=== PATIENT | female | born 1970 | race American Indian/Alaskan Native ===

== ENCOUNTER 2017-09-16 07:19 | Inpatient (IN) | payer SELFPAY ==
--- NOTE | 2017-09-16 07:59 | Emergency Department Report ---
ED General Adult HPI - General Chief complaint: Dizziness Stated complaint: DIZZY/NAUSEA Time Seen by Provider: 09/16/17 07:37 Source: patient Mode of arrival: Ambulatory Limitations: No Limitations - History of Present Illness Initial comments: Patient presents to emergency Department for chief complaint of confusion and dizziness. Patient states she has a significant history of hypertension and cerebral blood pressure was 250/150 at work after taking her 4 hypertensive medications. Patient describes the dizziness as constant and not improved with sitting still. Patient also complains of a diffuse headache that she describes as pressure-like. Patient denies chest pain, abdominal pain, leg pain. -: Sudden Location: head Radiation: non-radiation Severity scale (0 -10): 7 Quality: other (throbbing) Consistency: constant Improves with: none Worsens with: none Associated Symptoms: headaches, nausea/vomiting Treatments Prior to Arrival: none - Related Data Home Medications Medication Instructions Recorded Confirmed Last Taken Labetalol [Normodyne TAB] 100 mg PO BID 09/16/17 09/16/17 09/16/17 Losartan [Cozaar] 100 mg PO QHS 09/16/17 09/16/17 09/16/17 Potassium Chloride [K-Dur] 10 meq PO QDAY 09/16/17 09/16/17 09/16/17 amLODIPine [Norvasc] 10 mg PO DAILY 09/16/17 09/16/17 09/16/17 cloNIDine [Catapres] 0.2 mg PO QDAY 09/16/17 09/16/17 09/16/17 Allergies Allergy/AdvReac Type Severity Reaction Status Date / Time No Known Allergies Allergy Verified 09/16/17 07:56 ED Review of Systems ROS: Stated complaint: DIZZY/NAUSEA Other details as noted in HPI Comment: All other systems reviewed and negative Constitutional: denies: chills, fever Eyes: denies: eye pain, eye discharge, vision change ENT: denies: ear pain, throat pain Respiratory: denies: cough, shortness of breath, wheezing Cardiovascular: denies: chest pain, palpitations Endocrine: no symptoms reported Gastrointestinal: denies: abdominal pain, nausea, diarrhea Genitourinary: denies: urgency, dysuria, discharge Musculoskeletal: denies: back pain, joint swelling, arthralgia Skin: denies: rash, lesions Neurological: vertigo. denies: headache, weakness, paresthesias Psychiatric: denies: anxiety, depression Hematological/Lymphatic: denies: easy bleeding, easy bruising ED Past Medical Hx - Past Medical History Previous Medical History?: Yes Hx Hypertension: Yes - Surgical History Past Surgical History?: Yes Additional Surgical History: Partial hysterectomy - Social History Smoking Status: Current Every Day Smoker Substance Use Type: Alcohol, Marijuana, Prescribed - Medications Home Medications: Home Medications Medication Instructions Recorded Confirmed Last Taken Type Labetalol [Normodyne TAB] 100 mg PO BID 09/16/17 09/16/17 09/16/17 History Losartan [Cozaar] 100 mg PO QHS 09/16/17 09/16/17 09/16/17 History Potassium Chloride [K-Dur] 10 meq PO QDAY 09/16/17 09/16/17 09/16/17 History amLODIPine [Norvasc] 10 mg PO DAILY 09/16/17 09/16/17 09/16/17 History cloNIDine [Catapres] 0.2 mg PO QDAY 09/16/17 09/16/17 09/16/17 History ED Physical Exam - General Limitations: No Limitations General appearance: alert, in no apparent distress - Head Head exam: Present: atraumatic, normocephalic - Eye Eye exam: Present: normal appearance, PERRL, EOMI - ENT ENT exam: Present: mucous membranes moist - Neck Neck exam: Present: normal inspection - Respiratory Respiratory exam: Present: normal lung sounds bilaterally. Absent: respiratory distress - Cardiovascular Cardiovascular Exam: Present: regular rate, normal rhythm. Absent: systolic murmur, diastolic murmur, rubs, gallop - GI/Abdominal GI/Abdominal exam: Present: soft, normal bowel sounds. Absent: distended, tenderness - Extremities Exam Extremities exam: Present: normal inspection - Back Exam Back exam: Present: normal inspection - Neurological Exam Neurological exam: Present: alert, oriented X3, CN II-XII intact. Absent: motor sensory deficit - Psychiatric Psychiatric exam: Present: normal affect, normal mood - Skin Skin exam: Present: warm, dry, intact, normal color. Absent: rash ED Course Vital Signs 09/16/17 09/16/17 07:26 07:38 Temperature 97.6 F Pulse Rate 79 68 Respiratory 18 16 Rate Blood Pressure 253/150 Blood Pressure 234/136 [Left] O2 Sat by Pulse 100 100 Oximetry ED Medical Decision Making - Lab Data Result diagrams: 09/16/17 07:39 09/16/17 07:41 - EKG Data EKG shows normal: sinus rhythm (65) Rate: normal - EKG Data Interpretation: LV[facility] - Medical Decision Making Patient started according drip Discussed results with patient and her . Critical Care Time: Yes Critical care time in (mins) excluding proc time.: 45 Critical care attestation.: If time is entered above; I have spent that time in minutes in the direct care of this critically ill patient, excluding procedure time. ED Disposition Clinical Impression: Hypertensive encephalopathy, Hypertensive urgency, Hypokalemia Disposition: DC-09 OP ADMIT IP TO THIS HOSP Is pt being admited?: Yes Does the pt Need Aspirin: No Condition: Fair Referrals: PRIMARY CARE, [Primary Care Provider] - 3-5 Days Time of Disposition: 08:55
[2017-09-16] MEDS ORDERED: MORPHINE IV ONE (08:00)
[2017-09-16] MEDS ORDERED: ZOFRAN IV ONE (08:00)
[2017-09-16 08:12] LABS: Basophils % (Auto) 0.6 % (0.0-1.8); Eosinophils # (Auto) 0.1 K/mm3 (0.0-0.4); Eosinophils % (Auto) 1.8 % (0.0-4.3); Hemoglobin 12.8 gm/dl (10.1-14.3); Lymphocytes # (Auto) 2.6 K/mm3 (1.2-5.4); Lymphocytes % (Auto) 48.3 % (13.4-35.0); Mean Corpuscular HGB Conc 34 % (30-34); Mean Corpuscular Hemoglobin 31 pg (28-32); Mean Corpuscular Volume 91 fl (79-97); Monocytes # (Auto) 0.3 K/mm3 (0.0-0.8); Platelet Count 200 K/mm3 (140-440); Red Blood Count 4.19 M/mm3 (3.65-5.03); Red Cell Distribution Width 15.7 % (13.2-15.2)
--- NOTE | 2017-09-16 08:23 | Cat Scan Report ---
CRANIAL CT SCAN: Headache, slow speech. Serial contiguous axial images were obtained through the cranium. Intravenous contrast material was not administered. The ventricles are normal in size and appearance. There is no mass effect or midline shift. No areas of abnormally increased or decreased attenuation are seen. No mass lesion is seen. The mastoid air cells and visualized portions of the sinuses are normal except for minimal mucoperiosteal areas of thickening in the left sphenoid sinus. IMPRESSION: Cranial CT scan within normal limits.
[2017-09-16 08:28] LABS: BUN/Creatinine Ratio 16; Blood Urea Nitrogen 11 mg/dL (7-17); Calcium 9.7 mg/dL (8.4-10.2); Hemolysis Index 10
[2017-09-16 08:31] LABS: INR 0.92 (0.87-1.13); Partial Thromboplastin Time 26.4 Sec. (24.2-36.6)
[2017-09-16 08:34] LABS: Alanine Aminotransferase 8 units/L (7-56); Albumin 4.7 g/dL (3.9-5)
[2017-09-16 08:37] LABS: Bilirubin,Direct < 0.2 mg/dL (0-0.2)
[2017-09-16] MEDS: CARDENE 50 MG in NACL 0.9% 250ML 230 ML IV SCH ×2 (08:42→19:52)
--- NOTE | 2017-09-16 08:46 | XRay Report ---
PORTABLE CHEST: Confusion. An AP portable view of the chest demonstrates a normal cardiac contour considering the limits of this technique. The lungs are clear with no evidence of infiltrate, fluid or failure. IMPRESSION: Normal portable chest.
--- NOTE | 2017-09-16 10:24 | Consultation ---
<TONG WOODARD - Last Filed: 09/16/17 10:37> History of Present Illness Consult date: 09/16/17 Requesting physician: LUIS CABRERA Consult reason: atrial fibrillation History of present illness: The pt is a 46 Yo female with a past medical history significant for HTN and marijuana use. She is previously unknown to our practice. She is currently followed by [facility]. She presented with complaints of confusion, dizziness, diaphoresis, headache and nausea since this morning. Pt's spouse at bedside states that pt has a history of HTN for which she takes 4 anti-hypertensive medications and that her BP has been difficult to control for 20+ years. The pt awoke this AM in her normal state of health and took her medications and went to work. She was at work when her symptoms suddenly developed and EMS was called. Arrival BP was noted to be 253/150 and she was initiated on cardene gtt. Pt reports compliance with her home medication regimen. Following arrival, pt was noted to develop AFib with RVR and thus cardiology has been consulted. On evaluation, pt c/o new onset palpitations. Pt denies any prior cardiac issues , including CAD, AMI, HF or cardiac arrhythmias. Past History Past Medical History: hypertension Past Surgical History: hysterectomy (partial) Social history: , lives with family, smoking (marijuana). denies: alcohol abuse, prescription drug abuse, IV drug use Family history: diabetes, hypertension, other (mother with heart failure ) Medications and Allergies Allergies Allergy/AdvReac Type Severity Reaction Status Date / Time No Known Allergies Allergy Verified 09/16/17 07:56 Home Medications Medication Instructions Recorded Confirmed Last Taken Type Labetalol [Normodyne TAB] 100 mg PO BID 09/16/17 09/16/17 09/16/17 History Losartan [Cozaar] 100 mg PO QHS 09/16/17 09/16/17 09/16/17 History Potassium Chloride [K-Dur] 10 meq PO QDAY 09/16/17 09/16/17 09/16/17 History amLODIPine [Norvasc] 10 mg PO DAILY 09/16/17 09/16/17 09/16/17 History cloNIDine [Catapres] 0.2 mg PO QDAY 09/16/17 09/16/17 09/16/17 History Active Meds: Active Medications Nicardipine HCl 50 mg/ Sodium (Chloride) 250 mls @ 25 mls/hr IV TITR WENCESLAO; Protocol Last Admin: 09/16/17 08:42 Dose: 5 mg/hr, 25 mls/hr Amiodarone HCl 150 mg/ (Dextrose) 100 mls @ 600 mls/hr IV ONCE ONE; Protocol Stop: 09/16/17 10:23 Amiodarone HCl 900 mg/ (Dextrose) 500 mls @ 33.33 mls/hr IV DIRECT WENCESLAO; Protocol Magnesium Sulfate (Magnesium Sulfate 2gm/50ml) 2 gm in 50 mls @ 25 mls/hr IV ONCE ONE Stop: 09/16/17 12:13 Potassium Chloride (Kcl 10meq/100ml) 10 meq in 100 mls @ 100 mls/hr IV Q1H WENCESLAO Stop: 09/16/17 14:59 Review of Systems Constitutional: sweats, no weight loss, no weight gain, no fever, no chills Ears, nose, mouth and throat: no ear pain, no nose pain, no sinus pressure, no sinus pain Cardiovascular: palpitations, rapid/irregular heart beat, lightheadedness, high blood pressure, no chest pain, no orthopnea, no edema, no syncope, no shortness of breath, no dyspnea on exertion, no leg edema Respiratory: no cough, no shortness of breath, no dyspnea on exertion, no congestion, no wheezing, no pain on inspiration Gastrointestinal: nausea, no abdominal pain, no vomiting, no diarrhea, no constipation, no change in bowel habits Genitourinary Female: no pelvic pain, no flank pain Musculoskeletal: no neck stiffness, no neck pain, no shooting arm pain, no arm numbness/tingling, no low back pain, no shooting leg pain, no leg numbness/ tingling, no redness of joints, no hot joints, no morning stiffness, no muscle weakness Integumentary: no rash, no pruritis, no redness, no sores, no wounds Neurological: headaches, change in mentation, confusion, no head injury, no paralysis, no weakness, no parathesias, no numbness, no tingling, no seizures, no syncope Psychiatric: no anxiety Endocrine: no cold intolerance, no heat intolerance Hematologic/Lymphatic: no easy bruising, no easy bleeding Allergic/Immunologic: no urticaria, no wheezing Physical Examination Vital Signs Temp Pulse Resp BP Pulse Ox 97.6 F 79 18 253/150 100 09/16/17 07:26 09/16/17 07:26 09/16/17 07:26 09/16/17 07:26 09/16/17 07:26 General appearance: other (lethargic, diaphoretic ) HEENT: Positive: PERRL Neck: Positive: neck supple, trachea midline Cardiac: Positive: irregularly irregular, S1/S2, Systolic Murmur, Tachycardia Lungs: Positive: Decreased Breath Sounds Neuro: Positive: Grossly Intact Abdomen: Positive: Soft. Negative: Tender Skin: Positive: Clear. Negative: Rash, Wound Musculoskeletal: No Fluid Collection, No Pain, Normal Range of Motion Extremities: Absent: edema Results 09/16/17 07:39 09/16/17 07:41 Cardiac Enzymes 09/16/17 Range/Units 07:53 AST 15 (5-40) units/L Coagulation 09/16/17 Range/Units 07:41 PT 12.8 (12.2-14.9) Sec. INR 0.92 (0.87-1.13) APTT 26.4 (24.2-36.6) Sec. CBC 09/16/17 Range/Units 07:39 WBC 5.4 (4.5-11.0) K/mm3 RBC 4.19 (3.65-5.03) M/mm3 Hgb 12.8 (10.1-14.3) gm/dl Hct 38.0 (30.3-42.9) % Plt Count 200 (140-440) K/mm3 Lymph # 2.6 (1.2-5.4) K/mm3 [place] # 0.3 (0.0-0.8) K/mm3 Eos # 0.1 (0.0-0.4) K/mm3 Baso # 0.0 (0.0-0.1) K/mm3 Comprehensive Metabolic Panel 09/16/17 09/16/17 Range/Units 07:41 07:53 Sodium 141 (137-145) mmol/L Potassium 2.9 L* (3.6-5.0) mmol/L Chloride 101.4 (98-107) mmol/L Carbon Dioxide 21 L (22-30) mmol/L BUN 11 (7-17) mg/dL Creatinine 0.7 (0.7-1.2) mg/dL Glucose 133 H (65-100) mg/dL Calcium 9.7 (8.4-10.2) mg/dL Direct Bilirubin < 0.2 (0-0.2) mg/dL AST 15 (5-40) units/L ALT 8 (7-56) units/L Alkaline Phosphatase 55 (35-129) units/L Total Protein 7.4 (6.3-8.2) g/dL Albumin 4.7 (3.9-5) g/dL - Imaging and Cardiology Echo: pending EKG: report reviewed, image reviewed EKG interpretations - Telemetry EKG Rhythm: Atrial Fibrillation - EKG Supraventricular dysrhythmia: atrial fibrillation Repolarization changes or abnormalities: ST or T wave suggestive of ischemia Assessment and Plan Initiate IV amiodarone. Cont cardene gtt for BP optimization. Obtain echo. Obtain thyroid profile. Replete K+ and Mg and repeat BMP and Mg in AM. Pt with current CHADS score of 2 and thus systemic anticoagulation may be indicated if atrial fibrillation persists. Will initiate full dosage lovenox at this time and consider conversion to OAC prior to hospital discharge. The patient has been seen in conjunction with Dr. Ricks who agrees with the assessment and plan of care. - Patient Problems (1) Hypertensive emergency Current Visit: Yes Status: Acute (2) Atrial fibrillation with RVR Current Visit: Yes Status: Acute (3) Hypertensive encephalopathy Current Visit: Yes Status: Acute (4) Hypomagnesemia Current Visit: Yes Status: Acute (5) Hypokalemia Current Visit: Yes Status: Acute <KURT BROWN - Last Filed: 09/16/17 11:05> History of Present Illness History of present illness: NIHSS is 0 Medications and Allergies Active Meds: Active Medications Enoxaparin Sodium (Lovenox) 80 mg SUB-Q BID WENCESLAO Nicardipine HCl 50 mg/ Sodium (Chloride) 250 mls @ 25 mls/hr IV TITR WENCESLAO; Protocol Last Admin: 09/16/17 08:42 Dose: 5 mg/hr, 25 mls/hr Amiodarone HCl 900 mg/ (Dextrose) 500 mls @ 33.33 mls/hr IV DIRECT WENCESLAO; Protocol Magnesium Sulfate (Magnesium Sulfate 2gm/50ml) 2 gm in 50 mls @ 25 mls/hr IV ONCE ONE Stop: 09/16/17 12:29 Last Admin: 09/16/17 10:46 Dose: 25 mls/hr Potassium Chloride (Kcl 10meq/100ml) 10 meq in 100 mls @ 100 mls/hr IV Q1H WENCESLAO Stop: 09/16/17 14:59 Last Admin: 09/16/17 10:46 Dose: 100 mls/hr Physical Examination Vital Signs Temp Pulse Resp BP Pulse Ox 97.6 F 79 18 253/150 100 09/16/17 07:26 09/16/17 07:26 09/16/17 07:26 09/16/17 07:26 09/16/17 07:26 Results 09/16/17 07:39 09/16/17 07:41 Cardiac Enzymes 09/16/17 Range/Units 07:53 AST 15 (5-40) units/L Coagulation 09/16/17 Range/Units 07:41 PT 12.8 (12.2-14.9) Sec. INR 0.92 (0.87-1.13) APTT 26.4 (24.2-36.6) Sec. CBC 09/16/17 Range/Units 07:39 WBC 5.4 (4.5-11.0) K/mm3 RBC 4.19 (3.65-5.03) M/mm3 Hgb 12.8 (10.1-14.3) gm/dl Hct 38.0 (30.3-42.9) % Plt Count 200 (140-440) K/mm3 Lymph # 2.6 (1.2-5.4) K/mm3 Jackson # 0.3 (0.0-0.8) K/mm3 Eos # 0.1 (0.0-0.4) K/mm3 Baso # 0.0 (0.0-0.1) K/mm3 Comprehensive Metabolic Panel 09/16/17 09/16/17 Range/Units 07:41 07:53 Sodium 141 (137-145) mmol/L Potassium 2.9 L* (3.6-5.0) mmol/L Chloride 101.4 (98-107) mmol/L Carbon Dioxide 21 L (22-30) mmol/L BUN 11 (7-17) mg/dL Creatinine 0.7 (0.7-1.2) mg/dL Glucose 133 H (65-100) mg/dL Calcium 9.7 (8.4-10.2) mg/dL Direct Bilirubin < 0.2 (0-0.2) mg/dL AST 15 (5-40) units/L ALT 8 (7-56) units/L Alkaline Phosphatase 55 (35-129) units/L Total Protein 7.4 (6.3-8.2) g/dL Albumin 4.7 (3.9-5) g/dL
[2017-09-16] MEDS ORDERED: CORDARONE 150 MG in D5W 97 ML IV ONE (10:30)
[2017-09-16] MEDS ORDERED: MAGNESIUM SULFATE 2GM/50ML 2 GM/50 ML BAG IV ONE (10:30)
[2017-09-16] MEDS: KCL 10MEQ/100ML 10 MEQ/100 ML BAG IV SCH ×4 (10:46→16:46)
[2017-09-16] MEDS ORDERED: LOVENOX SUB-Q ONE (11:42)
[2017-09-16] MEDS: LOVENOX SUB-Q SCH (12:10)
[2017-09-16] MEDS: CORDARONE 900 MG in D5W 482 ML IV SCH (12:10)
--- NOTE | 2017-09-16 13:20 | History and Physical Report ---
History of Present Illness Date of examination: 09/16/17 Date of admission: 09/16/17 09:06 Chief complaint: cp History of present illness: The pt is a 46 Yo female with a past medical history significant for HTN and marijuana use, currently followed by [facility] who presented through the ED with complaints of confusion, dizziness, diaphoresis, headache and nausea that began on the morning of 09/16/17. Pt reportedly takes clonidine and losartan for her BP but it has been difficult to control for 20+ years. The pt awoke this AM in her normal state of health and took her medications and went to work. She was at work when her symptoms suddenly developed and EMS was called. Arrival BP was noted to be 253/150 and she was initiated on cardene gtt. Pt reports compliance with her home medication regimen. Following arrival, pt was noted to develop AFib with RVR. Pt denies any prior cardiac issues, including CAD, AMI, HF or cardiac arrhythmias. Past History Past Medical History: hypertension Past Surgical History: hysterectomy (partial) Social history: , lives with family, smoking (marijuana). denies: alcohol abuse, prescription drug abuse, IV drug use Family history: diabetes, hypertension, other (mother with heart failure ) Medications and Allergies Allergies Allergy/AdvReac Type Severity Reaction Status Date / Time No Known Allergies Allergy Verified 09/16/17 07:56 Home Medications Medication Instructions Recorded Confirmed Last Taken Type Labetalol [Normodyne TAB] 100 mg PO BID 09/16/17 09/16/17 09/16/17 History Losartan [Cozaar] 100 mg PO QHS 09/16/17 09/16/17 09/16/17 History Potassium Chloride [K-Dur] 10 meq PO QDAY 09/16/17 09/16/17 09/16/17 History amLODIPine [Norvasc] 10 mg PO DAILY 09/16/17 09/16/17 09/16/17 History cloNIDine [Catapres] 0.2 mg PO QDAY 09/16/17 09/16/17 09/16/17 History Active Meds: Active Medications Enoxaparin Sodium (Lovenox) 80 mg SUB-Q BID WENCESLAO Last Admin: 09/16/17 12:10 Dose: 80 mg Nicardipine HCl 50 mg/ Sodium (Chloride) 250 mls @ 25 mls/hr IV TITR WENCESLAO; Protocol Last Admin: 09/16/17 08:42 Dose: 5 mg/hr, 25 mls/hr Amiodarone HCl 900 mg/ (Dextrose) 500 mls @ 33.33 mls/hr IV DIRECT WENCESLAO; Protocol Last Admin: 09/16/17 12:10 Dose: 1 mg/min, 33.33 mls/hr Potassium Chloride (Kcl 10meq/100ml) 10 meq in 100 mls @ 100 mls/hr IV Q1H WENCESLAO Stop: 09/16/17 14:59 Last Admin: 09/16/17 12:10 Dose: 100 mls/hr Exam - Constitutional Vitals: Temp Pulse Resp BP Pulse Ox 97.6 F 95 H 17 164/101 78 L 09/16/17 07:26 09/16/17 12:31 09/16/17 12:31 09/16/17 12:31 09/16/17 12:31 General appearance: Present: no acute distress, well-nourished - EENT Eyes: Present: PERRL ENT: hearing intact, clear oral mucosa - Neck Neck: Present: supple, normal ROM - Respiratory Respiratory effort: normal Respiratory: bilateral: CTA - Cardiovascular Heart Sounds: Present: S1 & S2. Absent: rub, click - Extremities Extremities: pulses symmetrical, No edema Peripheral Pulses: within normal limits - Abdominal General gastrointestinal: Present: soft, non-tender, non-distended, normal bowel sounds Female genitourinary: Present: normal - Integumentary Integumentary: Present: clear, warm, dry - Musculoskeletal Musculoskeletal: gait normal, strength equal bilaterally - Psychiatric Psychiatric: appropriate mood/affect, intact judgment & insight - Neurologic Neurologic: CNII-XII intact, moves all extremities Results - Labs CBC & Chem 7: 09/16/17 07:39 09/16/17 07:41 Labs: Laboratory Last Values WBC 5.4 K/mm3 (4.5-11.0) 09/16/17 07:39 RBC 4.19 M/mm3 (3.65-5.03) 09/16/17 07:39 Hgb 12.8 gm/dl (10.1-14.3) 09/16/17 07:39 Hct 38.0 % (30.3-42.9) 09/16/17 07:39 MCV 91 fl (79-97) 09/16/17 07:39 MCH 31 pg (28-32) 09/16/17 07:39 MCHC 34 % (30-34) 09/16/17 07:39 RDW 15.7 % (13.2-15.2) H 09/16/17 07:39 Plt Count 200 K/mm3 (140-440) 09/16/17 07:39 Lymph % (Auto) 48.3 % (13.4-35.0) H 09/16/17 07:39 [place] % (Auto) 6.0 % (0.0-7.3) 09/16/17 07:39 Eos % (Auto) 1.8 % (0.0-4.3) 09/16/17 07:39 Baso % (Auto) 0.6 % (0.0-1.8) 09/16/17 07:39 Lymph # 2.6 K/mm3 (1.2-5.4) 09/16/17 07:39 [place] # 0.3 K/mm3 (0.0-0.8) 09/16/17 07:39 Eos # 0.1 K/mm3 (0.0-0.4) 09/16/17 07:39 Baso # 0.0 K/mm3 (0.0-0.1) 09/16/17 07:39 Seg Neutrophils % 43.3 % (40.0-70.0) 09/16/17 07:39 Seg Neutrophils # 2.3 K/mm3 (1.8-7.7) 09/16/17 07:39 PT 12.8 Sec. (12.2-14.9) 09/16/17 07:41 INR 0.92 (0.87-1.13) 09/16/17 07:41 APTT 26.4 Sec. (24.2-36.6) 09/16/17 07:41 Thrombin Time 14.8 Sec. (15.1-19.6) L 09/16/17 07:41 Sodium 141 mmol/L (137-145) 09/16/17 07:41 Potassium 2.9 mmol/L (3.6-5.0) L* 09/16/17 07:41 Chloride 101.4 mmol/L (98-107) 09/16/17 07:41 Carbon Dioxide 21 mmol/L (22-30) L 09/16/17 07:41 Anion Gap 22 mmol/L 09/16/17 07:41 BUN 11 mg/dL (7-17) 09/16/17 07:41 Creatinine 0.7 mg/dL (0.7-1.2) 09/16/17 07:41 Estimated GFR > 60 ml/min 09/16/17 07:41 BUN/Creatinine Ratio 16 % 09/16/17 07:41 Glucose 133 mg/dL (65-100) H 09/16/17 07:41 Calcium 9.7 mg/dL (8.4-10.2) 09/16/17 07:41 Magnesium 1.50 mg/dL (1.7-2.3) L 09/16/17 07:53 Total Bilirubin 0.50 mg/dL (0.1-1.2) 09/16/17 07:53 Direct Bilirubin < 0.2 mg/dL (0-0.2) 09/16/17 07:53 AST 15 units/L (5-40) 09/16/17 07:53 ALT 8 units/L (7-56) 09/16/17 07:53 Alkaline Phosphatase 55 units/L (35-129) 09/16/17 07:53 Troponin T < 0.010 ng/mL (0.00-0.029) 09/16/17 07:53 NT-Pro-B Natriuret Pep 671.3 pg/mL (0-450) H 09/16/17 07:53 Total Protein 7.4 g/dL (6.3-8.2) 09/16/17 07:53 Albumin 4.7 g/dL (3.9-5) 09/16/17 07:53 Albumin/Globulin Ratio 1.7 % 09/16/17 07:53 TSH 0.281 mlU/mL (0.270-4.200) 09/16/17 11:08 Free T4 1.23 ng/dL (0.76-1.46) 09/16/17 11:08 Assessment and Plan Assessment and plan: HTN emergency. Cont Cardene drip and restart Home meds Afib with RVR. CHADS score 2. Anticoagulation per Cardiology who has been consulted. Check ECHO Hypomagnesemia. Replete Mg Hypokalemia. Replete K
[2017-09-16] MEDS ORDERED: ZOFRAN ONE (14:08)
[2017-09-16] MEDS: ZOFRAN IV PRN ×2 (14:09→19:52)
--- NOTE | 2017-09-16 17:59 | Consultation ---
History of Present Illness Consult date: 09/16/17 Requesting physician: LUIS CABRERA History of present illness: The pt is a 46 Yo female with a past medical history significant for HTN and marijuana use, currently followed by [place] who presented through the ED with complaints of confusion, dizziness, diaphoresis, headache and nausea that began on the morning of 09/16/17. Pt reportedly takes clonidine and losartan for her BP but it has been difficult to control for 20+ years. The pt awoke this AM in her normal state of health and took her medications and went to work. She was at work when her symptoms suddenly developed and EMS was called. Arrival BP was noted to be 253/150 and she was initiated on cardene gtt. Pt reports compliance with her home medication regimen. Following arrival, pt was noted to develop AFib with RVR. Pt denies any prior cardiac issues, including CAD, AMI, HF or cardiac arrhythmias. Patient seen and examined. Vitals, labs, medications, chart and imaging reviewed She feels better. Denies any nausea, headaches are much better Currently in sinus rhythm on amiodarone infusion and nicardipine infusion Review of systems Comment: All other systems reviewed and negative Constitutional: denies: chills, fever Eyes: denies: eye pain, eye discharge, vision change ENT: denies: ear pain, throat pain Respiratory: denies: cough, shortness of breath, wheezing Cardiovascular: denies: chest pain, palpitations Endocrine: no symptoms reported Gastrointestinal: denies: abdominal pain, nausea, diarrhea Genitourinary: denies: urgency, dysuria, discharge Musculoskeletal: denies: back pain, joint swelling, arthralgia Skin: denies: rash, lesions Neurological: vertigo. denies: headache, weakness, paresthesias Psychiatric: denies: anxiety, depression Hematological/Lymphatic: denies: easy bleeding, easy bruising Past History Past Medical History: hypertension Past Surgical History: hysterectomy (partial) Social history: , lives with family, smoking (marijuana). denies: alcohol abuse, prescription drug abuse, IV drug use Family history: diabetes, hypertension, other (mother with heart failure ) Medications and Allergies Allergies Allergy/AdvReac Type Severity Reaction Status Date / Time No Known Allergies Allergy Verified 09/16/17 07:56 Home Medications Medication Instructions Recorded Confirmed Last Taken Type Labetalol [Normodyne TAB] 100 mg PO BID 09/16/17 09/16/17 09/16/17 History Losartan [Cozaar] 100 mg PO QHS 09/16/17 09/16/17 09/16/17 History Potassium Chloride [K-Dur] 10 meq PO QDAY 09/16/17 09/16/17 09/16/17 History amLODIPine [Norvasc] 10 mg PO DAILY 09/16/17 09/16/17 09/16/17 History cloNIDine [Catapres] 0.2 mg PO QDAY 09/16/17 09/16/17 09/16/17 History Active Meds: Active Medications Amlodipine Besylate (Norvasc) 10 mg PO DAILY [facility] Clonidine HCl (Catapres) 0.2 mg PO QDAY [facility] Enoxaparin Sodium (Lovenox) 80 mg SUB-Q BID [facility] Last Admin: 09/16/17 12:10 Dose: 80 mg Nicardipine HCl 50 mg/ Sodium (Chloride) 250 mls @ 25 mls/hr IV TITR [facility]; Protocol Last Admin: 09/16/17 08:42 Dose: 5 mg/hr, 25 mls/hr Amiodarone HCl 900 mg/ (Dextrose) 500 mls @ 33.33 mls/hr IV DIRECT [facility]; Protocol Last Admin: 09/16/17 12:10 Dose: 1 mg/min, 33.33 mls/hr Labetalol HCl (Normodyne) 100 mg PO BID [facility] Losartan Potassium (Cozaar) 100 mg PO QHS [facility] Ondansetron HCl (Zofran) 4 mg IV Q6H PRN PRN Reason: Nausea And Vomiting Potassium Chloride (K-Dur) 10 meq PO QDAY [facility] Physical Examination Vital signs: Vital Signs Temp Pulse Resp BP Pulse Ox 97.6 F 79 18 253/150 100 09/16/17 07:26 09/16/17 07:26 09/16/17 07:26 09/16/17 07:26 09/16/17 07:26 Reviewed General appearance: no acute distress, lethargic, other (Atraumatic, normocephalic) Eyes: non-icteric ENT: oropharynx moist, other Neck: supple, no lymphadenopathy, no JVD Effort: normal Ascultation: Bilateral: clear Cardiovascular: regular rate and rhythm, other (S1,S2, no murmurs, gallops or rubs) Gastrointestinal: normoactive bowel sounds, soft, non-tender, non-distended, other (No hepatosplenomegaly) Integumentary: normal Extremities: no cyanosis, no edema, pulses normal, no ischemia or petechiae Musculoskeletal: no deformities normal mental status, non-focal exam, pupils equal and round, CN II-XII normal, motor strength normal and mood appropriate, anxious Results - Laboratory Findings CBC and BMP: 09/16/17 07:39 09/17/17 03:49 PT/INR, D-dimer PT 12.8 Sec. (12.2-14.9) 09/16/17 07:41 INR 0.92 (0.87-1.13) 09/16/17 07:41 Abnormal lab findings: Abnormal Labs 09/16/17 09/16/17 09/16/17 07:39 07:41 07:41 RDW 15.7 H Lymph % (Auto) 48.3 H Thrombin Time 14.8 L Potassium 2.9 L* Carbon Dioxide 21 L Glucose 133 H Magnesium NT-Pro-B Natriuret Pep 09/16/17 09/16/17 07:53 07:53 RDW Lymph % (Auto) Thrombin Time Potassium Carbon Dioxide Glucose Magnesium 1.50 L NT-Pro-B Natriuret Pep 671.3 H - Diagnostic Findings Chest x-ray: image reviewed (No acute cardiopulmonary disease) Assessment and Plan HTN emergency, encephalopathy Afib with RVR. CHADS score 2 Elevated BNP Hypomagnesemia. Hypokalemia..chronic Obesity Tobacco abuse disorder/Nicotine dependence Admit ICU Titrate off cardene infusion Home medications to be resumed...currently on amlodipine, losartan, clonidine and metoprolol VTE prophylaxis Amiodarone infusion Get Transthoracic echocardiogram Replete potassium..keep K at 4 and Mg at 2 Smoking cessation counselling done at the bedside Weight loss and lifestyle modifications discussed Nicotine withdrawal precautions Anti-emetics Discussed care plan with patient and her daughter who was at the bedside CC time 40 minutes
[2017-09-17] MEDS: COZAAR PO SCH ×3 (00:42→21:58)
[2017-09-17] MEDS: NORMODYNE PO SCH ×4 (00:43→21:58)
[2017-09-17] MEDS: LOVENOX SUB-Q SCH ×2 (00:44→09:14)
[2017-09-17 05:01] LABS: BUN/Creatinine Ratio 14; Blood Urea Nitrogen 7 mg/dL (7-17); Calcium 9.6 mg/dL (8.4-10.2); Hemolysis Index 3
[2017-09-17] MEDS: ZOFRAN IV PRN (07:48)
[2017-09-17] MEDS: CATAPRES PO SCH (09:13)
[2017-09-17] MEDS: K-DUR PO SCH (09:14)
--- NOTE | 2017-09-17 09:29 | Progress Note ---
Hospitalist Physical - Constitutional Vitals: Temp Pulse Resp BP Pulse Ox 98.4 F 70 14 197/117 100 09/17/17 08:00 09/17/17 09:14 09/17/17 09:10 09/17/17 09:14 09/17/17 09:10 General appearance: Present: no acute distress, well-nourished Results - Labs CBC & Chem 7: 09/16/17 07:39 09/17/17 03:49 Labs: Laboratory Last Values WBC 5.4 K/mm3 (4.5-11.0) 09/16/17 07:39 RBC 4.19 M/mm3 (3.65-5.03) 09/16/17 07:39 Hgb 12.8 gm/dl (10.1-14.3) 09/16/17 07:39 Hct 38.0 % (30.3-42.9) 09/16/17 07:39 MCV 91 fl (79-97) 09/16/17 07:39 MCH 31 pg (28-32) 09/16/17 07:39 MCHC 34 % (30-34) 09/16/17 07:39 RDW 15.7 % (13.2-15.2) H 09/16/17 07:39 Plt Count 200 K/mm3 (140-440) 09/16/17 07:39 Lymph % (Auto) 48.3 % (13.4-35.0) H 09/16/17 07:39 [place] % (Auto) 6.0 % (0.0-7.3) 09/16/17 07:39 Eos % (Auto) 1.8 % (0.0-4.3) 09/16/17 07:39 Baso % (Auto) 0.6 % (0.0-1.8) 09/16/17 07:39 Lymph # 2.6 K/mm3 (1.2-5.4) 09/16/17 07:39 [place] # 0.3 K/mm3 (0.0-0.8) 09/16/17 07:39 Eos # 0.1 K/mm3 (0.0-0.4) 09/16/17 07:39 Baso # 0.0 K/mm3 (0.0-0.1) 09/16/17 07:39 Seg Neutrophils % 43.3 % (40.0-70.0) 09/16/17 07:39 Seg Neutrophils # 2.3 K/mm3 (1.8-7.7) 09/16/17 07:39 PT 12.8 Sec. (12.2-14.9) 09/16/17 07:41 INR 0.92 (0.87-1.13) 09/16/17 07:41 APTT 26.4 Sec. (24.2-36.6) 09/16/17 07:41 Thrombin Time 14.8 Sec. (15.1-19.6) L 09/16/17 07:41 Sodium 136 mmol/L (137-145) L 09/17/17 03:49 Potassium 3.4 mmol/L (3.6-5.0) L 09/17/17 03:49 Chloride 98.3 mmol/L (98-107) 09/17/17 03:49 Carbon Dioxide 21 mmol/L (22-30) L 09/17/17 03:49 Anion Gap 20 mmol/L 09/17/17 03:49 BUN 7 mg/dL (7-17) 09/17/17 03:49 Creatinine 0.5 mg/dL (0.7-1.2) L 09/17/17 03:49 Estimated GFR > 60 ml/min 09/17/17 03:49 BUN/Creatinine Ratio 14 % 09/17/17 03:49 Glucose 103 mg/dL (65-100) H 09/17/17 03:49 Calcium 9.6 mg/dL (8.4-10.2) 09/17/17 03:49 Magnesium 2.00 mg/dL (1.7-2.3) 09/17/17 03:49 Total Bilirubin 0.50 mg/dL (0.1-1.2) 09/16/17 07:53 Direct Bilirubin < 0.2 mg/dL (0-0.2) 09/16/17 07:53 AST 15 units/L (5-40) 09/16/17 07:53 ALT 8 units/L (7-56) 09/16/17 07:53 Alkaline Phosphatase 55 units/L (35-129) 09/16/17 07:53 Troponin T < 0.010 ng/mL (0.00-0.029) 09/16/17 07:53 NT-Pro-B Natriuret Pep 671.3 pg/mL (0-450) H 09/16/17 07:53 Total Protein 7.4 g/dL (6.3-8.2) 09/16/17 07:53 Albumin 4.7 g/dL (3.9-5) 09/16/17 07:53 Albumin/Globulin Ratio 1.7 % 09/16/17 07:53 TSH 0.281 mlU/mL (0.270-4.200) 09/16/17 11:08 Free T4 1.23 ng/dL (0.76-1.46) 09/16/17 11:08
[2017-09-17] MEDS ORDERED: NORVASC PO SCH (10:00)
--- NOTE | 2017-09-17 10:04 | Progress Note ---
Assessment and Plan HTN emergency, encephalopathy Afib with RVR. CHADS score 2 Elevated BNP Hypomagnesemia. Hypokalemia..chronic Obesity Tobacco abuse disorder/Nicotine dependence Titrate off cardene infusion Continue amlodipine, losartan, clonidine and metoprolol VTE prophylaxis Amiodarone infusion Follow Transthoracic echocardiogram Keep K at 4 and Mg at 2 Smoking cessation counselling done at the bedside, ongoing Weight loss and lifestyle modifications discussed Nicotine withdrawal precautions Anti-emetics Discussed care plan with patient and her daughter who was at the bedside Subjective Date of service: 09/17/17 Principal diagnosis: Malignant hypertension, Afib with RVR Interval history: f/up Hypertensive emergency, acute encephalopathy, Afib with RVR, Tobacco abuse disorder Seen and examined. Vitals, labs, medications, chart reviewed. Discussed in ICU-IDT rounds 24 hour events reviewed. Received oral antihypertensives this morning. On going need for cardene infusion and amiodarone. She states she feels better, nausea is improving and headaches have resolved Objective Vital Signs - 12hr 09/16/17 09/16/17 09/16/17 22:11 22:21 22:31 Temperature Pulse Rate 69 66 68 Pulse Rate [ Right Radial] Respiratory 19 18 18 Rate Blood Pressure 171/106 171/106 171/106 O2 Sat by Pulse 100 100 100 Oximetry 09/16/17 09/16/17 09/16/17 22:41 22:51 23:00 Temperature Pulse Rate 70 75 72 Pulse Rate [ Right Radial] Respiratory 11 L 19 21 Rate Blood Pressure 171/106 171/106 179/102 O2 Sat by Pulse 100 100 100 Oximetry 09/16/17 09/16/17 09/16/17 23:11 23:21 23:31 Temperature Pulse Rate 68 66 65 Pulse Rate [ Right Radial] Respiratory 23 19 18 Rate Blood Pressure 179/102 179/102 179/102 O2 Sat by Pulse 100 100 100 Oximetry 09/16/17 09/16/17 09/16/17 23:41 23:47 23:51 Temperature 98.0 F Pulse Rate 65 65 Pulse Rate [ Right Radial] Respiratory 20 19 Rate Blood Pressure 179/102 179/102 O2 Sat by Pulse 100 100 Oximetry 09/17/17 09/17/17 09/17/17 00:00 00:11 00:21 Temperature Pulse Rate 69 68 64 Pulse Rate [ Right Radial] Respiratory 19 18 18 Rate Blood Pressure 165/101 165/101 165/101 O2 Sat by Pulse 100 100 99 Oximetry 09/17/17 09/17/17 09/17/17 00:28 00:31 00:41 Temperature Pulse Rate 66 70 Pulse Rate [ 65 Right Radial] Respiratory 20 21 21 Rate Blood Pressure 165/101 165/101 O2 Sat by Pulse 100 100 100 Oximetry 09/17/17 09/17/17 09/17/17 00:42 00:43 00:47 Temperature Pulse Rate 64 64 65 Pulse Rate [ Right Radial] Respiratory 19 Rate Blood Pressure 171/106 174/106 165/101 O2 Sat by Pulse 100 Oximetry 09/17/17 09/17/17 09/17/17 00:48 00:51 01:00 Temperature Pulse Rate 67 62 61 Pulse Rate [ Right Radial] Respiratory 20 17 Rate Blood Pressure 165/101 165/101 151/109 O2 Sat by Pulse 98 100 Oximetry 09/17/17 09/17/17 09/17/17 01:08 01:11 01:21 Temperature Pulse Rate 63 65 61 Pulse Rate [ Right Radial] Respiratory 20 22 20 Rate Blood Pressure 151/109 151/109 151/109 O2 Sat by Pulse 100 100 100 Oximetry 09/17/17 09/17/17 09/17/17 01:31 01:41 01:51 Temperature Pulse Rate 59 L 61 60 Pulse Rate [ Right Radial] Respiratory 19 20 20 Rate Blood Pressure 151/109 151/109 151/109 O2 Sat by Pulse 99 99 99 Oximetry 09/17/17 09/17/17 09/17/17 02:01 02:11 02:21 Temperature Pulse Rate 61 59 L 61 Pulse Rate [ Right Radial] Respiratory 21 18 20 Rate Blood Pressure 180/108 180/108 180/108 O2 Sat by Pulse 99 100 100 Oximetry 09/17/17 09/17/17 09/17/17 02:31 02:41 02:51 Temperature Pulse Rate 61 60 59 L Pulse Rate [ Right Radial] Respiratory 19 19 20 Rate Blood Pressure 180/108 180/108 180/108 O2 Sat by Pulse 99 100 100 Oximetry 09/17/17 09/17/17 09/17/17 03:00 03:11 03:21 Temperature Pulse Rate 59 L 62 58 L Pulse Rate [ Right Radial] Respiratory 18 22 20 Rate Blood Pressure 180/108 177/112 177/112 O2 Sat by Pulse 100 100 100 Oximetry 09/17/17 09/17/17 09/17/17 03:31 03:41 03:51 Temperature Pulse Rate 59 L 64 69 Pulse Rate [ Right Radial] Respiratory 20 22 23 Rate Blood Pressure 177/112 177/112 177/112 O2 Sat by Pulse 100 100 100 Oximetry 09/17/17 09/17/17 09/17/17 04:00 04:11 04:21 Temperature 98.1 F Pulse Rate 59 L 55 L 55 L Pulse Rate [ Right Radial] Respiratory 20 19 18 Rate Blood Pressure 195/113 195/113 196/115 O2 Sat by Pulse 100 100 100 Oximetry 09/17/17 09/17/17 09/17/17 04:30 04:41 04:50 Temperature Pulse Rate 68 68 66 Pulse Rate [ Right Radial] Respiratory 17 17 20 Rate Blood Pressure 178/113 178/113 175/105 O2 Sat by Pulse 100 100 100 Oximetry 09/17/17 09/17/17 09/17/17 05:00 05:11 05:21 Temperature Pulse Rate 64 65 64 Pulse Rate [ Right Radial] Respiratory 17 17 18 Rate Blood Pressure 172/104 172/104 178/104 O2 Sat by Pulse 100 100 100 Oximetry 09/17/17 09/17/17 09/17/17 05:30 05:41 05:51 Temperature Pulse Rate 65 74 69 Pulse Rate [ Right Radial] Respiratory 19 24 17 Rate Blood Pressure 178/107 178/104 195/118 O2 Sat by Pulse 100 100 100 Oximetry 09/17/17 09/17/17 09/17/17 05:53 06:00 06:11 Temperature Pulse Rate 69 67 Pulse Rate [ 71 Right Radial] Respiratory 18 19 17 Rate Blood Pressure 175/109 195/118 O2 Sat by Pulse 100 100 100 Oximetry 09/17/17 09/17/17 09/17/17 06:21 06:30 06:40 Temperature Pulse Rate 74 58 L 57 L Pulse Rate [ Right Radial] Respiratory 20 20 17 Rate Blood Pressure 176/109 176/109 O2 Sat by Pulse 100 98 98 Oximetry 09/17/17 09/17/17 09/17/17 06:50 07:00 07:10 Temperature Pulse Rate 63 65 71 Pulse Rate [ 76 Right Radial] Respiratory 20 20 22 Rate Blood Pressure 180/105 174/104 174/104 O2 Sat by Pulse 99 99 100 Oximetry 09/17/17 09/17/1709/17/18 07:20 07:30 07:40 Temperature Pulse Rate 80 77 69 Pulse Rate [ Right Radial] Respiratory 18 16 16 Rate Blood Pressure 174/104 171/106 171/106 O2 Sat by Pulse 100 100 100 Oximetry 09/17/17 09/17/17 09/17/17 07:50 08:00 08:10 Temperature 98.4 F Pulse Rate 70 66 73 Pulse Rate [ Right Radial] Respiratory 16 16 13 Rate Blood Pressure 195/113 195/120 195/120 O2 Sat by Pulse 100 94 100 Oximetry 09/17/17 09/17/17 09/17/17 08:20 08:30 08:40 Temperature Pulse Rate 70 70 67 Pulse Rate [ Right Radial] Respiratory 20 20 21 Rate Blood Pressure 187/112 192/114 192/114 O2 Sat by Pulse 97 100 100 Oximetry 09/17/17 09/17/17 09/17/17 08:50 09:00 09:10 Temperature Pulse Rate 71 74 79 Pulse Rate [ Right Radial] Respiratory 14 23 14 Rate Blood Pressure 197/117 197/117 197/117 O2 Sat by Pulse 100 99 100 Oximetry 09/17/17 09/17/17 09/17/17 09:12 09:13 09:14 Temperature Pulse Rate 69 68 70 Pulse Rate [ Right Radial] Respiratory Rate Blood Pressure 197/117 197/117 197/117 O2 Sat by Pulse Oximetry Constitutional: no acute distress, alert Eyes: non-icteric ENT: oropharynx moist Neck: supple, no lymphadenopathy, no JVD Effort: normal Ascultation: Bilateral: clear Cardiovascular: regular rate and rhythm, other (S1,S2, no murmurs, no gallops) Gastrointestinal: normoactive bowel sounds, soft, non-tender, non-distended Integumentary: normal Extremities: no cyanosis, no edema, pink and warm, pulses normal, no ischemia or petechiae Neurologic: normal mental status, non-focal exam, pupils equal and round, CN II- XII normal, motor strength normal and Psychiatric: mood appropriate, affect normal CBC and BMP: 09/16/17 07:39 09/17/17 03:49 ABG, PT/INR, D-dimer: PT/INR, D-dimer PT 12.8 Sec. (12.2-14.9) 09/16/17 07:41 INR 0.92 (0.87-1.13) 09/16/17 07:41 Abnormal lab findings: Abnormal Labs 09/16/17 09/16/17 09/16/17 07:39 07:41 07:41 RDW 15.7 H Lymph % (Auto) 48.3 H Thrombin Time 14.8 L Sodium Potassium 2.9 L* Carbon Dioxide 21 L Creatinine Glucose 133 H Magnesium NT-Pro-B Natriuret Pep 09/16/17 09/16/17 09/17/17 07:53 07:53 03:49 RDW Lymph % (Auto) Thrombin Time Sodium 136 L Potassium 3.4 L Carbon Dioxide 21 L Creatinine 0.5 L Glucose 103 H Magnesium 1.50 L NT-Pro-B Natriuret Pep 671.3 H Allied health notes reviewed: case management
--- NOTE | 2017-09-17 10:24 | Progress Note ---
Assessment and Plan Echo reviewed - normal LVEF, mod to severe LVH, mild to mod MR, mild TR. Pt has converted to NSR. D/c amio gtt. D/c amlodipine and initiate PO cardizem 60mg Q8H and wean cardene gtt OFF for SBP <160mmHg. Increase labetalol to 300mg BID. Thyroid profile WNL. Replete K+ and repeat BMP in AM. AFib likely precipitated by uncontrolled htn, severe hypokalemia, mild hypomagnesemia. In setting of brief (<24Hr) and transient nature of atrial fibrillation, no indication for systemic anticoagulation at this time. Will d/c full dosage lovenox and transition to lovenox for DVT prophylaxis. The patient has been seen in conjunction with Dr. Ricks who agrees with the assessment and plan of care. - Patient Problems (1) Hypertensive emergency Current Visit: Yes Status: Acute (2) Atrial fibrillation with RVR Current Visit: Yes Status: Resolved (3) Hypertensive encephalopathy Current Visit: Yes Status: Acute (4) Hypomagnesemia Current Visit: Yes Status: Acute (5) Hypokalemia Current Visit: Yes Status: Acute Subjective Date of service: 09/17/17 Principal diagnosis: Malignant hypertension, Afib with RVR Interval history: pt resting comfortably in bed, appears more alert today, states she is feeling better. Had some bouts of nausea overnight. Converted to NSR overnight. BPs remain elevated. On amio and cardene gtt. Objective Last Vital Signs Temp 98.4 F 09/17/17 08:00 Pulse 70 09/17/17 09:14 Resp 14 09/17/17 09:10 BP 197/117 09/17/17 09:14 Pulse Ox 100 09/17/17 09:10 - Physical Examination General: No Apparent Distress HEENT: Positive: PERRL Neck: Positive: neck supple, trachea midline Cardiac: Positive: Reg Rate and Rhythm, S1/S2, Systolic Murmur Lungs: Positive: clear to auscultation Neuro: Positive: Grossly Intact Abdomen: Positive: Soft. Negative: Tender Skin: Positive: Clear. Negative: Rash, Wound Musculoskeletal: No Fluid Collection, No Pain, Normal Range of Motion Extremities: Absent: edema - Labs and Meds Comprehensive Metabolic Panel 09/17/17 Range/Units 03:49 Sodium 136 L (137-145) mmol/L Potassium 3.4 L (3.6-5.0) mmol/L Chloride 98.3 (98-107) mmol/L Carbon Dioxide 21 L (22-30) mmol/L BUN 7 (7-17) mg/dL Creatinine 0.5 L (0.7-1.2) mg/dL Glucose 103 H (65-100) mg/dL Calcium 9.6 (8.4-10.2) mg/dL - Imaging and Cardiology EKG: report reviewed, image reviewed Echo: pending - Telemetry EKG Rhythm: Sinus Rhythm Repolarization changes or abnormalities: ST or T wave suggestive of ischemia
[2017-09-17] MEDS ORDERED: K-DUR PO ONE (10:25)
[2017-09-17] MEDS ORDERED: CARDIZEM PO SCH (10:43)
[2017-09-17] MEDS: CORDARONE 900 MG in D5W 482 ML IV SCH (10:44)
[2017-09-17] MEDS ORDERED: NORMODYNE PO ONE (10:48)
--- NOTE | 2017-09-17 11:51 | Progress Note ---
Assessment and Plan Assessment and plan: HTN emergency. Resolving. Wean Cardene drip. Continue current by mouth medications. Blood pressure is much improved. Afib with RVR. CHADS score 2. Echocardiogram is pending. Patient has converted to normal sinus rhythm. Amiodarone discontinued. Patient started on Cardizem 60 mg every 8 hours. Labetalol has been increased to 300 mg twice a day. Thyroid profile within normal limits. AFib likely precipitated by uncontrolled htn, severe hypokalemia, mild hypomagnesemia. In setting of brief ( <24Hr) and transient nature of atrial fibrillation, no indication for systemic anticoagulation at this time. Will d/c full dosage lovenox and transition to lovenox for DVT prophylaxis. Hypomagnesemia. Replete Mg as needed Hypokalemia. Replete K as needed History Interval history: No new issues overnight. Hospitalist Physical - Constitutional Vitals: Temp Pulse Resp BP Pulse Ox 98.4 F 62 10 L 137/82 100 09/17/17 08:00 09/17/17 11:33 09/17/17 10:20 09/17/17 11:33 09/17/17 10:20 General appearance: Present: no acute distress, well-nourished - EENT Eyes: Present: PERRL, EOM intact ENT: hearing intact, clear oral mucosa, dentition normal - Neck Neck: Present: supple, normal ROM - Respiratory Respiratory effort: normal Respiratory: bilateral: CTA - Cardiovascular Rhythm: regular Heart Sounds: Present: S1 & S2. Absent: gallop, rub - Extremities Extremities: no ischemia, No edema, Full ROM - Abdominal General gastrointestinal: soft, non-tender, non-distended, normal bowel sounds - Integumentary Integumentary: Present: clear, warm, dry - Neurologic Neurologic: CNII-XII intact, moves all extremities Results - Labs CBC & Chem 7: 09/16/17 07:39 09/17/17 03:49 Labs: Laboratory Last Values WBC 5.4 K/mm3 (4.5-11.0) 09/16/17 07:39 RBC 4.19 M/mm3 (3.65-5.03) 09/16/17 07:39 Hgb 12.8 gm/dl (10.1-14.3) 09/16/17 07:39 Hct 38.0 % (30.3-42.9) 09/16/17 07:39 MCV 91 fl (79-97) 09/16/17 07:39 MCH 31 pg (28-32) 09/16/17 07:39 MCHC 34 % (30-34) 09/16/17 07:39 RDW 15.7 % (13.2-15.2) H 09/16/17 07:39 Plt Count 200 K/mm3 (140-440) 09/16/17 07:39 Lymph % (Auto) 48.3 % (13.4-35.0) H 09/16/17 07:39 [place] % (Auto) 6.0 % (0.0-7.3) 09/16/17 07:39 Eos % (Auto) 1.8 % (0.0-4.3) 09/16/17 07:39 Baso % (Auto) 0.6 % (0.0-1.8) 09/16/17 07:39 Lymph # 2.6 K/mm3 (1.2-5.4) 09/16/17 07:39 [place] # 0.3 K/mm3 (0.0-0.8) 09/16/17 07:39 Eos # 0.1 K/mm3 (0.0-0.4) 09/16/17 07:39 Baso # 0.0 K/mm3 (0.0-0.1) 09/16/17 07:39 Seg Neutrophils % 43.3 % (40.0-70.0) 09/16/17 07:39 Seg Neutrophils # 2.3 K/mm3 (1.8-7.7) 09/16/17 07:39 PT 12.8 Sec. (12.2-14.9) 09/16/17 07:41 INR 0.92 (0.87-1.13) 09/16/17 07:41 APTT 26.4 Sec. (24.2-36.6) 09/16/17 07:41 Thrombin Time 14.8 Sec. (15.1-19.6) L 09/16/17 07:41 Sodium 136 mmol/L (137-145) L 09/17/17 03:49 Potassium 3.4 mmol/L (3.6-5.0) L 09/17/17 03:49 Chloride 98.3 mmol/L (98-107) 09/17/17 03:49 Carbon Dioxide 21 mmol/L (22-30) L 09/17/17 03:49 Anion Gap 20 mmol/L 09/17/17 03:49 BUN 7 mg/dL (7-17) 09/17/17 03:49 Creatinine 0.5 mg/dL (0.7-1.2) L 09/17/17 03:49 Estimated GFR > 60 ml/min 09/17/17 03:49 BUN/Creatinine Ratio 14 % 09/17/17 03:49 Glucose 103 mg/dL (65-100) H 09/17/17 03:49 Calcium 9.6 mg/dL (8.4-10.2) 09/17/17 03:49 Magnesium 2.00 mg/dL (1.7-2.3) 09/17/17 03:49 Total Bilirubin 0.50 mg/dL (0.1-1.2) 09/16/17 07:53 Direct Bilirubin < 0.2 mg/dL (0-0.2) 09/16/17 07:53 AST 15 units/L (5-40) 09/16/17 07:53 ALT 8 units/L (7-56) 09/16/17 07:53 Alkaline Phosphatase 55 units/L (35-129) 09/16/17 07:53 Troponin T < 0.010 ng/mL (0.00-0.029) 09/16/17 07:53 NT-Pro-B Natriuret Pep 671.3 pg/mL (0-450) H 09/16/17 07:53 Total Protein 7.4 g/dL (6.3-8.2) 09/16/17 07:53 Albumin 4.7 g/dL (3.9-5) 09/16/17 07:53 Albumin/Globulin Ratio 1.7 % 09/16/17 07:53 TSH 0.281 mlU/mL (0.270-4.200) 09/16/17 11:08 Free T4 1.23 ng/dL (0.76-1.46) 09/16/17 11:08
[2017-09-17] MEDS: CARDIZEM PO SCH (15:32)
[2017-09-17] MEDS: APRESOLINE PO SCH ×2 (15:32→21:59)
[2017-09-17] MEDS: APRESOLINE IV PRN (20:15)
[2017-09-18] MEDS: CARDIZEM PO SCH ×4 (01:19→22:32)
[2017-09-18] MEDS: APRESOLINE PO SCH ×3 (06:20→22:32)
[2017-09-18] MEDS: K-DUR PO SCH (10:59)
[2017-09-18] MEDS: CATAPRES PO SCH (10:59)
[2017-09-18] MEDS: NORMODYNE PO SCH ×2 (11:00→22:32)
[2017-09-18] MEDS: LOVENOX SUB-Q SCH (11:03)
--- NOTE | 2017-09-18 11:15 | Progress Note ---
Assessment and Plan Assessment and plan: Accelerated hypertension. Continue current by mouth medications. Blood pressure is much improved. Afib with RVR. CHADS score 2. Echocardiogram revealed normal LVEF, mod to severe LVH, mild to mod MR, mild TR. . Patient has converted to normal sinus rhythm. Amiodarone discontinued. Patient started on Cardizem 60 mg every 8 hours. Labetalol has been increased to 300 mg twice a day. Thyroid profile within normal limits. AFib likely precipitated by uncontrolled htn, severe hypokalemia, mild hypomagnesemia. In setting of brief (<24Hr) and transient nature of atrial fibrillation, no indication for systemic anticoagulation at this time. Hypomagnesemia. Replete Mg as needed Hypokalemia. Replete K as needed History Interval history: No new issues overnight. Hospitalist Physical - Constitutional Vitals: Temp Pulse Resp BP Pulse Ox 98.5 F 63 20 139/94 100 09/18/17 05:37 09/18/17 06:20 09/18/17 05:37 09/18/17 06:20 09/18/17 05:37 General appearance: Present: no acute distress, well-nourished - EENT Eyes: Present: PERRL, EOM intact ENT: hearing intact, clear oral mucosa, dentition normal - Neck Neck: Present: supple, normal ROM - Respiratory Respiratory effort: normal Respiratory: bilateral: CTA - Cardiovascular Rhythm: regular Heart Sounds: Present: S1 & S2. Absent: gallop, rub - Extremities Extremities: no ischemia, No edema, Full ROM - Abdominal General gastrointestinal: soft, non-tender, non-distended, normal bowel sounds - Integumentary Integumentary: Present: clear, warm, dry - Neurologic Neurologic: CNII-XII intact, moves all extremities Results - Labs CBC & Chem 7: 09/16/17 07:39 09/17/17 03:49 Labs: Laboratory Last Values WBC 5.4 K/mm3 (4.5-11.0) 09/16/17 07:39 RBC 4.19 M/mm3 (3.65-5.03) 09/16/17 07:39 Hgb 12.8 gm/dl (10.1-14.3) 09/16/17 07:39 Hct 38.0 % (30.3-42.9) 09/16/17 07:39 MCV 91 fl (79-97) 09/16/17 07:39 MCH 31 pg (28-32) 09/16/17 07:39 MCHC 34 % (30-34) 09/16/17 07:39 RDW 15.7 % (13.2-15.2) H 09/16/17 07:39 Plt Count 200 K/mm3 (140-440) 09/16/17 07:39 Lymph % (Auto) 48.3 % (13.4-35.0) H 09/16/17 07:39 White % (Auto) 6.0 % (0.0-7.3) 09/16/17 07:39 Eos % (Auto) 1.8 % (0.0-4.3) 09/16/17 07:39 Baso % (Auto) 0.6 % (0.0-1.8) 09/16/17 07:39 Lymph # 2.6 K/mm3 (1.2-5.4) 09/16/17 07:39 White # 0.3 K/mm3 (0.0-0.8) 09/16/17 07:39 Eos # 0.1 K/mm3 (0.0-0.4) 09/16/17 07:39 Baso # 0.0 K/mm3 (0.0-0.1) 09/16/17 07:39 Seg Neutrophils % 43.3 % (40.0-70.0) 09/16/17 07:39 Seg Neutrophils # 2.3 K/mm3 (1.8-7.7) 09/16/17 07:39 PT 12.8 Sec. (12.2-14.9) 09/16/17 07:41 INR 0.92 (0.87-1.13) 09/16/17 07:41 APTT 26.4 Sec. (24.2-36.6) 09/16/17 07:41 Thrombin Time 14.8 Sec. (15.1-19.6) L 09/16/17 07:41 Sodium 136 mmol/L (137-145) L 09/17/17 03:49 Potassium 3.4 mmol/L (3.6-5.0) L 09/17/17 03:49 Chloride 98.3 mmol/L (98-107) 09/17/17 03:49 Carbon Dioxide 21 mmol/L (22-30) L 09/17/17 03:49 Anion Gap 20 mmol/L 09/17/17 03:49 BUN 7 mg/dL (7-17) 09/17/17 03:49 Creatinine 0.5 mg/dL (0.7-1.2) L 09/17/17 03:49 Estimated GFR > 60 ml/min 09/17/17 03:49 BUN/Creatinine Ratio 14 % 09/17/17 03:49 Glucose 103 mg/dL (65-100) H 09/17/17 03:49 Calcium 9.6 mg/dL (8.4-10.2) 09/17/17 03:49 Magnesium 2.00 mg/dL (1.7-2.3) 09/17/17 03:49 Total Bilirubin 0.50 mg/dL (0.1-1.2) 09/16/17 07:53 Direct Bilirubin < 0.2 mg/dL (0-0.2) 09/16/17 07:53 AST 15 units/L (5-40) 09/16/17 07:53 ALT 8 units/L (7-56) 09/16/17 07:53 Alkaline Phosphatase 55 units/L (35-129) 09/16/17 07:53 Troponin T < 0.010 ng/mL (0.00-0.029) 09/16/17 07:53 NT-Pro-B Natriuret Pep 671.3 pg/mL (0-450) H 09/16/17 07:53 Total Protein 7.4 g/dL (6.3-8.2) 09/16/17 07:53 Albumin 4.7 g/dL (3.9-5) 09/16/17 07:53 Albumin/Globulin Ratio 1.7 % 09/16/17 07:53 TSH 0.281 mlU/mL (0.270-4.200) 09/16/17 11:08 Free T4 1.23 ng/dL (0.76-1.46) 09/16/17 11:08
--- NOTE | 2017-09-18 11:39 | Progress Note ---
Assessment and Plan Currently stable cardiac status. Pt remains in NSR. AFib likely precipitated by uncontrolled htn, severe hypokalemia, mild hypomagnesemia. In setting of brief (<24Hr) and transient nature of atrial fibrillation, no indication for systemic anticoagulation at this time. Pt may discharge home from cardiology standpoint. Follow up in our [place] office with Dr. Ricks on 10/01/2017 @ 9:45AM. The patient has been seen in conjunction with Dr. Ricks who agrees with the assessment and plan of care. - Patient Problems (1) Hypertensive emergency Current Visit: Yes Status: Resolved (2) Atrial fibrillation with RVR Current Visit: Yes Status: Resolved (3) Hypertensive encephalopathy Current Visit: Yes Status: Resolved (4) Hypomagnesemia Current Visit: Yes Status: Acute (5) Hypokalemia Current Visit: Yes Status: Acute Subjective Date of service: 09/18/17 Principal diagnosis: Malignant hypertension, Afib with RVR Interval history: pt resting comfortably in bed, A&O, states she is feeling better. Remains in NSR. BPs improved. Objective Last Vital Signs Temp 98.5 F 09/18/17 05:37 Pulse 63 09/18/17 06:20 Resp 20 09/18/17 05:37 BP 139/94 09/18/17 06:20 Pulse Ox 100 09/18/17 05:37 - Physical Examination General: No Apparent Distress HEENT: Positive: PERRL Neck: Positive: neck supple, trachea midline Cardiac: Positive: Reg Rate and Rhythm Lungs: Positive: clear to auscultation Neuro: Positive: Grossly Intact Abdomen: Positive: Soft. Negative: Tender Skin: Positive: Clear. Negative: Rash, Wound Musculoskeletal: No Fluid Collection, No Pain, Normal Range of Motion Extremities: Absent: edema - Imaging and Cardiology EKG: report reviewed, image reviewed Echo: report reviewed (normal LVEF, mod to severe LVH, mild to mod MR, mild TR. ) - Telemetry EKG Rhythm: Sinus Rhythm Repolarization changes or abnormalities: ST or T wave suggestive of ischemia - Allied health notes Allied health notes reviewed: case management
[2017-09-18] MEDS: COZAAR PO SCH (22:32)
[2017-09-19] MEDS: APRESOLINE PO SCH (06:10)
[2017-09-19] MEDS: CARDIZEM PO SCH (06:12)
--- NOTE | 2017-09-19 08:52 | Discharge Summary ---
Providers - Providers Date of Admission: 09/16/17 09:06 Date of discharge: 09/19/17 Attending physician: LUIS CABRERA 09/16/17 09:44 Consult to Cardiology [CONS] Stat Consulting Provider: TONG WOODARD Reason For Exam: new onset Afib 09/16/17 12:51 Consult to Physician [CONS] Stat Comment: DR RAY NOTIFIED 1400 Consulting Provider: CHRIS FIERRO Physician Instructions: Reason For Exam: icu admission 09/17/17 10:19 Consult to Dietitian/Nutrition [CONS] Routine Physician Instructions: Reason For Exam: Reason for Consult: Poor oral intake Primary care physician: MAINTENANCE MECHANIC TECHNICIAN Hospitalization Reason for admission: htn emergency and afib RVR Condition: Fair Hospital course: The pt is a 46 Yo female with a past medical history significant for HTN and marijuana use, currently followed by [facility] who presented through the ED with complaints of confusion, dizziness, diaphoresis, headache and nausea that began on the morning of 09/16/17. Pt reportedly takes clonidine and losartan for her BP but it has been difficult to control for 20+ years. Prior to admission, the patient was at work when her symptoms suddenly developed and EMS was called. Arrival BP was noted to be 253/150 and she was initiated on cardene gtt. Pt reported compliance with her home medication regimen. Following arrival, pt was noted to develop AFib with RVR. Pt denied any prior cardiac issues, including CAD, AMI, HF or cardiac arrhythmias. The patient was admitted to the ICU and continued on Cardene drip. Patient was seen by tank furnace operator and cardiology consultation. Cardiology started also amiodarone drip. Echocardiogram revealed normal LVEF, mod to severe LVH, mild to mod MR, mild TR. The patient quickly converted to normal sinus rhythm and amiodarone drip was discontinued. Patient was initiated on by mouth Cardizem. Cardizem drip was also weaned off and patient maintained on by mouth antihypertensive medications. Cardiology felt that AFib likely precipitated by uncontrolled htn, severe hypokalemia, mild hypomagnesemia. In setting of brief (<24Hr) and transient nature of atrial fibrillation, no indication for systemic anticoagulation at this time. The patient was felt to receive maximal hospital benefit and will be discharged home with follow cardiology. Dedicated discharge time 34 minutes. Disposition: TO HOME OR SELFCARE Time spent for discharge: 34 - Discharge Diagnoses (1) Hypertensive urgency Status: Acute (2) Hypokalemia Status: Acute (3) Atrial fibrillation with RVR Status: Resolved Core Measure Documentation - Palliative Care Palliative Care/ Comfort Measures: Not Applicable - Core Measures Any of the following diagnoses?: none Exam - Constitutional Vitals: Temp Pulse Resp BP Pulse Ox 98.4 F 60 20 130/85 100 09/19/17 05:19 09/19/17 06:12 09/19/17 05:19 09/19/17 06:12 09/19/17 05:19 General appearance: Present: no acute distress, well-nourished - EENT Eyes: Present: PERRL ENT: hearing intact, clear oral mucosa - Neck Neck: Present: supple, normal ROM - Respiratory Respiratory effort: normal Respiratory: bilateral: CTA - Cardiovascular Heart Sounds: Present: S1 & S2. Absent: rub, click - Extremities Extremities: pulses symmetrical, No edema Peripheral Pulses: within normal limits - Abdominal General gastrointestinal: Present: soft, non-tender, non-distended, normal bowel sounds Female genitourinary: Present: normal - Integumentary Integumentary: Present: clear, warm, dry - Musculoskeletal Musculoskeletal: gait normal, strength equal bilaterally - Psychiatric Psychiatric: appropriate mood/affect, intact judgment & insight - Neurologic Neurologic: CNII-XII intact, moves all extremities Plan Activity: no restrictions Weight Bearing Status: Full Weight Bearing Diet: low fat, low cholesterol, low salt Follow up with: ISMAEL CRENSHAW MD [Staff Physician] - 7 Days (Follow up in our [place] office with Dr. Ricks on 10/01/2017 @ 9:45AM. ) PRIMARY CAREMD [Primary Care Provider] - 3-5 Days Prescriptions: cloNIDine [Catapres] 0.2 mg PO QDAY #30 tablet Diltiazem [Cardizem] 60 mg PO Q8H #90 tablet hydrALAZINE [Apresoline TAB] 50 mg PO Q8HR #90 tablet Labetalol [Normodyne TAB] 300 mg PO BID #60 tablet Losartan [Cozaar] 100 mg PO QHS #30 tablet Potassium Chloride [K-Dur] 10 meq PO QDAY #30 tablet
[2017-09-19] MEDS: LOVENOX SUB-Q SCH (10:54)
[2017-09-19] MEDS: CATAPRES PO SCH (10:55)
[2017-09-19] MEDS: NORMODYNE PO SCH (10:55)
[2017-09-19] MEDS: K-DUR PO SCH (10:55)
[2017-09-19] MEDS: APRESOLINE IV PRN (12:31)
[2017-09-19 12:32] VITALS: BP 169/112
== END 2017-09-19 13:39 | disposition home or self-care (01) | DRG 78 ==
LOC: ED 07:19 → CC1 09:06 → 4A 09-17 14:26
PROVIDERS: ADMIT Hospitalist; ATTEND Hospitalist
DX: I67.4 Hypertensive encephalopathy (principal); I16.1 Hypertensive emergency; I16.0 Hypertensive urgency; E83.42 Hypomagnesemia; F17.200 Nicotine dependence, unspecified, uncomplicated; E66.9 Obesity, unspecified; E87.6 Hypokalemia; I08.1 Rheumatic disorders of both mitral and tricuspid valves; F12.90 Cannabis use, unspecified, uncomplicated; I48.91 Unspecified atrial fibrillation; Z90.711 Acquired absence of uterus with remaining cervical stump; Z82.49 Family history of ischemic heart disease and other diseases of the circulatory system; Z83.3 Family history of diabetes mellitus; Z68.29 Body mass index [BMI] 29.0-29.9, adult
CPT/HCPCS: 36415; 70450; 71045; 80048; 80074; 83735; 83880; 84439; 84443; 84484; 85025; 85610; 85670; 85730; 93005; 93010; 93306; J0282; J0360; J1650; J2270; J2405; J3475; J3480; J7050; J7060